=== PATIENT | female | born 1995 | race Two or more races ===

== ENCOUNTER 2023-08-03 14:58 | Observation (INO) | payer OTHER ==
[~2023-08-03] VITALS: Ht 157.5 cm; Wt 72.6 kg
[2023-08-03] MEDS ORDERED: TERBUTALINE SULFATE 1 MG/ML 1ML VIAL SC SCH (16:30)
[2023-08-03] MEDS ORDERED: TERBUTALINE SULFATE 1 MG/ML 1ML VIAL SC ONE (16:40)
[2023-08-03] MEDS ORDERED: METF-370 PO (19:19)
[2023-08-03] MEDS ORDERED: PREN-96 PO (19:19)
== END 2023-08-03 19:40 | disposition home or self-care (01) ==
LOC: EDBD 14:58 → UNDOADMOB 14:58 → LDRP 14:58
PROVIDERS: ADMIT Obstetrics & Gynecology; ATTEND Obstetrics & Gynecology
DX: O24.419 Gestational diabetes mellitus in pregnancy, unspecified control (principal); O60.03 Preterm labor without delivery, third trimester; Z3A.33 33 weeks gestation of pregnancy
CPT/HCPCS: 59025; 76805; 76818; 81002; 82948; 94760; 96372; G0378; J3105

== ENCOUNTER 2023-08-06 13:12 | Observation (INO) | payer MEDICAID ==
[~2023-08-06 13:12] MED LIST: METF-370 PO; PREN-96 PO
== END 2023-08-06 14:30 | disposition home or self-care (01) ==
LOC: LDRP 13:12
PROVIDERS: ADMIT Obstetrics & Gynecology; ATTEND Obstetrics & Gynecology
DX: O24.419 Gestational diabetes mellitus in pregnancy, unspecified control (principal); O60.03 Preterm labor without delivery, third trimester; Z3A.33 33 weeks gestation of pregnancy
CPT/HCPCS: 59025; 76818; 81002; 82962; 94760; G0378

== ENCOUNTER 2023-08-11 12:16 | Observation (INO) | payer MEDICAID | END 2023-08-11 15:30 | disposition home or self-care (01) | LOC: LDRP 12:16 → UNDOADMOB 12:16 → LDRP 13:08 | PROVIDERS: ADMIT Obstetrics & Gynecology; ATTEND Obstetrics & Gynecology | DX: O24.415 Gestational diabetes mellitus in pregnancy, controlled by oral hypoglycemic drugs (principal); Z3A.34 34 weeks gestation of pregnancy; Z79.84 Long term (current) use of oral hypoglycemic drugs | CPT/HCPCS: 59025; 76817; 76818; 81002; 82948; 82962; G0378 ==